=== PATIENT | male | born 1965 | race Caucasian/White ===

== ENCOUNTER 2020-08-03 08:34 | Outpatient (REF) | payer OTHER, SELFPAY ==
[2020-08-03 11:11] LABS: MANUAL DIFF FLAG NO
[2020-08-03 11:29] LABS: Basophils Absolute Auto 0.1 X10*3/uL (0.0-0.2); Basophils Percent Auto 1.1 % (0-2); Eosinophils Absolute Auto 0.1 X10*3/uL (0.0-0.4); Eosinophils Percent Auto 3.2 % (0-4); Hematocrit 49.7 % (42-52); Hemoglobin 16.4 g/dl (14.0-18.0); Imm Gran Abs Auto 0.01 X10*3/uL (0.00-0.03); Imm Gran Pct Auto 0.2 % (0.0-0.4); Lymphocytes Absolute Auto 1.4 X10*3/uL (1.2-4.9); Lymphocytes Percent Auto 31.4 % (20-40); Mean Corpuscular Hemoglobin 32.1 pg (27.0-33.0); Mean Corpuscular Volume 97.3 fL (80-98); Mean Platelet Volume 10.4 fL (9.4-12.4); Monocytes Absolute Auto 0.4 X10*3/uL (0.1-1.2); Monocytes Percent Auto 9.3 % (2-11); Neutrophils Absolute Auto 2.4 X10*3/uL (2.0-8.3); Neutrophils Percent Auto 54.8 % (45-73); Platelet Count 165 X10*3/uL (160-400); Red Blood Count 5.11 X10*6/uL (4.60-5.80); Red Cell Distribution Width 13.3 % (11.0-16.0); White Blood Count 4.4 X10*3/uL (4.8-10.8)
[2020-08-03 11:43] LABS: Alanine Aminotransferase 43 U/L (0-40); Albumin Level 4.3 g/dL (3.5-5.0); Alkaline Phosphatase 84 U/L (39-117); Anion Gap 13 (12-20); Aspartate Amino Transferase 28 U/L (5-37); Bilirubin Total 0.9 mg/dL (0.0-1.0); Blood Urea Nitrogen 18 mg/dL (9-16); Calcium 8.7 mg/dL (8.4-10.2); Carbon Dioxide 27 mmol/L (22-29); Chloride 101 mmol/L (96-108); Cholesterol 259 mg/dL; Estimated Glomerular Filt Rate 58; Glucose Fasting 96 mg/dL (60-99); HDL Cholesterol 50 mg/dL; LDL Cholesterol Calculated 178 mg/dl; Potassium 4.1 mmol/l (3.3-5.1); Sodium 137 mmol/L (135-145); Total Protein 7.4 g/dL (6.5-8.0); Triglycerides 159 mg/dL
== END 2020-08-03 08:35 | disposition home or self-care (01) ==
LOC: HO.HMGCLDS 08:34
PROVIDERS: PCP Internal Medicine; Visit Provider Internal Medicine
DX: E66.09 Other obesity due to excess calories (principal); Z68.35 Body mass index [BMI] 35.0-35.9, adult; Z00.01 Encounter for general adult medical examination with abnormal findings
CPT/HCPCS: 36415; 80053; 80061; 85025

== ENCOUNTER 2022-06-04 09:17 | Outpatient (REF) | payer OTHER, SELFPAY ==
--- NOTE | ~2022-06-04 | US_ITS ---
EXAMINATION: US VENOUS ULTRASOUND WITH DOPPLER LOWER EXTREMITY, RIGHT CLINICAL INFORMATION: Right leg pain and swelling. History of deep vein thrombosis. COMPARISON: None TECHNIQUE: Ultrasound of the deep veins is performed from the hip to the calf with compression sonography and color and pulse Doppler assessment. Spectral analysis with color-flow imaging is performed. FINDINGS: The common femoral vein is compressible and exhibits a normal phasic waveform; this suggests that the iliac veins are widely patent above. Within the proximal thigh, the visualized profunda femoris vein is normal. The examined greater saphenous vein and saphenofemoral junction are normal. There is nonocclusive, echogenic thrombus in the lumen of the femoral vein of the proximal thigh. This could represent relatively old, partially recanalized thrombus in this patient with history of DVT. However, in the proximal to mid thigh, the thrombus becomes more extensive and is segmentally occlusive. In the lower thigh, there is nonocclusive thrombus of the femoral vein. The popliteal vein has mild wall thickening and this is likely from chronic thrombus. The posterior tibial vein is unremarkable. The peroneal veins are not adequately visualized. No evidence of Jiang's cyst. US/US venous duplex LE RT IMPRESSION: The patient has deep vein thrombosis. Findings could represent a combination of chronic as well as [id number]-[id number] thrombosis involving the femoral vein. There is nonocclusive thrombosis of the popliteal vein. The nanotechnology engineering technologist notes that the preliminary results were discussed with the provider at 10:15 AM on 06/04/2022, and the patient will follow-up with the provider.
== END 2022-06-04 09:18 | disposition home or self-care (01) ==
LOC: HO.HMGCX 09:17
PROVIDERS: Visit Provider Internal Medicine
DX: Z86.718 Personal history of other venous thrombosis and embolism (principal)
CPT/HCPCS: 93971

== ENCOUNTER → 2022-06-07 12:57 | Outpatient (BNV) | payer OTHER, SELFPAY | PROVIDERS: Referring Provider Internal Medicine; Visit Provider Internal Medicine | DX: I82.511 Chronic embolism and thrombosis of right femoral vein (principal) | CPT/HCPCS: 99204; 99213; 99214 ==

== ENCOUNTER 2022-06-24 08:54 | Outpatient (REF) | payer OTHER, SELFPAY ==
[2022-06-24 11:37] LABS: Hematocrit 49.9 % (42.0-52.0); Hemoglobin 16.8 g/dl (14.0-18.0); Mean Corpuscular HGB Conc 33.7 g/dl (31.0-36.0); Mean Corpuscular Hemoglobin 31.3 pg (27.0-33.0); Mean Corpuscular Volume 92.9 fL (80.0-98.0); Mean Platelet Volume 10.7 fL (9.4-12.4); Platelet Count 166 X10*3/uL (160-400); Red Blood Count 5.37 X10*6/uL (4.60-5.80); Red Cell Distribution Width 13.3 % (11.0-16.0); White Blood Count 3.8 X10*3/uL (4.8-10.8)
[2022-06-24 11:52] LABS: Anion Gap 14 (12-20); Blood Urea Nitrogen 15 mg/dL (9-16); Carbon Dioxide 24 mmol/L (22-29); Chloride 104 mmol/L (96-108); Estimated Glomerular Filt Rate 59; Glucose Random 115 mg/dL (60-115); Potassium 3.9 mmol/L (3.3-5.1); Sodium 138 mmol/L (135-145)
[2022-06-25 09:03] LABS: Herpes Simplex Type 2 IgG <0.90 index; Lyme Abs Screen <0.90 index
== END 2022-06-24 08:55 | disposition home or self-care (01) ==
LOC: HO.HMGCLDS 08:54
PROVIDERS: PCP Internal Medicine; Visit Provider Internal Medicine
DX: G51.0 Bell's palsy (principal)
CPT/HCPCS: 36415; 80048; 85027; 86617; 86618; 86695; 86696

== ENCOUNTER 2022-09-18 17:26 | Outpatient (REF) | payer OTHER, SELFPAY | END 2022-09-18 17:27 | disposition home or self-care (01) | LOC: HO.LNP 17:26 | PROVIDERS: Visit Provider Internal Medicine | DX: B35.1 Tinea unguium (principal) | CPT/HCPCS: 87101; 87107; 87220 ==

== ENCOUNTER 2023-10-01 11:39 | Outpatient (AMB) | payer OTHER, SELFPAY ==
--- NOTE | 2023-10-01 11:45 | A.OFFPC_ITS ---
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 He says that he has appointment with Hematology in December meanwhile he is requesting refill which I have sent for him Patient also have onychomycosis on his toenails, he took terbinafine last year for 3 month the fingernails cleared up but since he did not come in for follow- up and did not do the labs after that we did not refill the terbinafine. Explained to patient that medication have side effect we have to monitor liver function while he is taking that. I want him to do the labs today and I will send in another 3 months of terbinafine 250 mg once a day and then patient need to come in for follow-up in 3 months He also have a history of L4-5 disc fusion in the past, currently going to chiropractor which is helping however still continued to have pain radiating to left leg he is requesting to be started on gabapentin He has taken it in the past and did well. Patient is aware of side effect, we discussed the side effect again, this is a controlled medication and will require a visit every 3 months for refill. Patient agrees. Labs to be done today follow-up in 3 months for physical exam BMI is elevated patient is trying to lose weight PFSH Medical History Bulging lumbar disc Surgical History H/O lumbosacral spine surgery Family History Mother Allergies Varicose vein of leg Father Heart attack Stroke Social History Household Members: Significant Other Housing: House Patient Tobacco Use Status: Former Tobacco user Tobacco use type: Cigarette e-Cigarette/Vaping Use: Never Used Substance Use Type: Marijuana service: Yes ([employer]) Current occupational status: employed Cognitive needs: No Hearing needs: No Vision needs: Yes Review of Systems Const Denies chills and Denies fever(s) ENT Denies epistaxis and Denies nasal discharge Card Denies chest pain Resp Denies chest congestion, Denies cough and Denies hemoptysis GI Denies diarrhea and Denies nausea Skin/Breast Denies rash Neuro Reports no additional complaints Psych Reports no additional complaints Endo Reports no additional complaints Physical exam (Primary Care) Vital Signs: Last Vital Signs Pulse 83 10/01/23 11:46 BP 122/82 10/01/23 11:46 Pulse Ox 96 10/01/23 11:46 Oxygen Delivery Method Room Air 10/01/23 11:46 BMI result Body Mass Index 37.2 Tobacco/Smoking Status: Tobacco use Status Tobacco use date assessed 09/18/22 10/01/23 11:48 Patient Tobacco Use Status Former Tobacco user 10/01/23 11:48 Tobacco use type Cigarette 10/01/23 11:48 e-Cigarette/Vaping Use Never Used 10/01/23 11:48 Const General: cooperative, comfortable and no acute distress Orientation/consciousness: patient oriented x3 HENMT Head: Yes normocephalic Eyes General: appearance normal, both eyes and all related structures Neck Neck: Yes supple Resp Effort & Inspection: normal respiratory effort, no cough and no stridor Cardio Rhythm: regular rhythm Heart sounds: S1 normal heart sound present and S2 normal heart sound present Skin General skin exam: turgor normal Neuro General: patient oriented x3, tone normal and moves all extremities Extrem Other: Big toenail discolored and thick Right lower extremity: no edema Left lower extremity: no edema Assessment and Plan Assessment & Plan (1) Fungal toenail infection: Code(s): B35.1 - Tinea unguium (2) History of DVT (deep vein thrombosis): Code(s): Z86.718 - Personal history of other venous thrombosis and embolism (3) Left lumbar radiculitis: Code(s): M54.16 - Radiculopathy, lumbar region (4) Obesity due to excess calories: Code(s): E66.09 - Other obesity due to excess calories Qualifiers: Body mass index: BMI 37.0-37.9 Obesity classification: adult class 2 (BMI 35 - 39.9) Serious obesity comorbidity presence: without serious comorbidity Qualified Code(s): E66.09 - Other obesity due to excess calories; Z68.37 - Body mass index [BMI] 37.0-37.9, adult (5) History of lumbar discectomy: Code(s): Z98.890 - Other specified postprocedural states (6) 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 He says that he has appointment with Hematology in December meanwhile he is requesting refill which I have sent for him Patient also have onychomycosis on his toenails, he took terbinafine last year for 3 month the fingernails cleared up but since he did not come in for follow- up and did not do the labs after that we did not refill the terbinafine. Explained to patient that medication have side effect we have to monitor liver function while he is taking that. I want him to do the labs today and I will send in another 3 months of terbinafine 250 mg once a day and then patient need to come in for follow-up in 3 months He also have a history of L4-5 disc fusion in the past, currently going to chiropractor which is helping however still continued to have pain radiating to left leg he is requesting to be started on gabapentin He has taken it in the past and did well. Patient is aware of side effect, we discussed the side effect again, this is a controlled medication and will r equire a visit every 3 months for refill. Patient agrees. Labs to be done today follow-up in 3 months for physical exam BMI is elevated patient is trying to lose weight Orders: Orders Complete Blood Count Auto Diff Today B35.1 - Tinea unguium Comprehensive Met. Panel Today B35.1 - Tinea unguium Medications: New gabapentin 300 mg PO BEDTIME 90 caps 0RF Refilled rivaroxaban must administer with evening meal 20 mg PO DAILY 90 tabs 0RF Coding Level of Care Code Est Pt Level 4 (97705) Diagnoses Fungal toenail infection B35.1 History of DVT (deep vein thrombosis) Z86.718 Left lumbar radiculitis M54.16 Class 2 obesity due to excess calories without serious comorbidity with body mass index (BMI) of 37.0 to 37.9 in adult E66.09; Z68.37 Body mass index: BMI 37.0-37.9 Obesity classification: adult class 2 (BMI 35 - 39.9) Serious obesity comorbidity presence: without serious comorbidity History of lumbar discectomy Z98.890 Hx of care home use of blood thinners Z92.29
[2023-10-01 11:46] VITALS: BP 122/82; PULSE 83; O2SAT 96; BMI 37.2
== END 2023-10-01 16:48 | disposition home or self-care (01) ==
PROVIDERS: PCP Internal Medicine; Visit Provider Internal Medicine
DX: B35.1 Tinea unguium (principal); Z86.718 Personal history of other venous thrombosis and embolism; M54.16 Radiculopathy, lumbar region; E66.09 Other obesity due to excess calories; Z68.37 Body mass index [BMI] 37.0-37.9, adult; Z98.890 Other specified postprocedural states; Z92.29 Personal history of other drug therapy
CPT/HCPCS: 99214

== ENCOUNTER 2023-10-01 12:08 | Outpatient (REF) | payer OTHER, SELFPAY ==
[2023-10-01 13:07] LABS: MANUAL DIFF FLAG NO
[2023-10-01 13:31] LABS: Basophils Absolute Auto 0.1 X10*3/uL (0.0-0.2); Eosinophils Absolute Auto 0.2 X10*3/uL (0.0-0.4); Eosinophils Percent Auto 3.1 % (0-4); Hematocrit 47.7 % (42.0-52.0); Hemoglobin 16.2 g/dl (14.0-18.0); Imm Gran Abs Auto 0.02 X10*3/uL (0.00-0.03); Imm Gran Pct Auto 0.3 % (0.0-0.4); Lymphocytes Absolute Auto 1.6 X10*3/uL (1.2-4.9); Lymphocytes Percent Auto 26.5 % (20-40); Mean Corpuscular Hemoglobin 31.6 pg (27.0-33.0); Mean Corpuscular Volume 93.2 fL (80.0-98.0); Mean Platelet Volume 10.6 fL (9.4-12.4); Monocytes Absolute Auto 0.7 X10*3/uL (0.1-1.2); Monocytes Percent Auto 11.8 % (2-11); Neutrophils Absolute Auto 3.4 x10*3/uL (2.0-8.3); Neutrophils Percent Auto 57.3 % (45-73); Platelet Count 179 X10*3/uL (160-400); Red Blood Count 5.12 X10*6/uL (4.60-5.80); Red Cell Distribution Width 13.2 % (11.0-16.0); White Blood Count 5.9 X10*3/uL (4.8-10.8)
[2023-10-01 13:54] LABS: Alanine Aminotransferase 36 U/L (0-40); Albumin Level 4.3 g/dL (3.5-5.0); Alkaline Phosphatase 84 U/L (39-117); Anion Gap 13 (12-20); Aspartate Amino Transferase 29 U/L (5-37); Bilirubin Total 0.6 mg/dL (0.0-1.0); Blood Urea Nitrogen 15 mg/dL (9-16); Calcium 9.5 mg/dL (8.4-10.2); Carbon Dioxide 24 mmol/L (22-29); Chloride 107 mmol/L (96-108); Estimated Glomerular Filt Rate 60; Glucose Random 71 mg/dL (60-115); Potassium 3.7 mmol/L (3.3-5.1); Sodium 140 mmol/L (135-145); Total Protein 7.6 g/dL (6.5-8.0)
== END 2023-10-01 12:09 | disposition home or self-care (01) ==
LOC: HO.HMGCLDS 12:08
PROVIDERS: PCP Internal Medicine; Visit Provider Internal Medicine
DX: B35.1 Tinea unguium (principal)
CPT/HCPCS: 36415; 80053; 85025

== ENCOUNTER 2023-11-12 09:56 | Outpatient (AMB) | payer OTHER, SELFPAY ==
--- NOTE | 2023-11-12 10:03 | A.OFFPC_ITS ---
Vital Signs 11/12/23 10:04 Height 6 ft 1 in Weight 283 lb 6 oz BMI 37.4 BP 130/88 Blood Pressure Location Lt brachial Position Sitting Pulse 84 Pulse Source Pulse Oximeter Pulse Oximetry (%) 97 Oxygen Delivery Method Room Air Intake Visit Reasons: F/U medications Allergies No Known Allergies Allergy (Verified 11/12/23 10:04) Medication List - Last Reconciled 11/12/23 by Cate Horton MD gabapentin 300 mg PO BEDTIME rivaroxaban 20 mg PO DAILY Tobacco use date assessed: 11/12/23 Dental Screening Dental Screen Date: 11/12/23 Did you have a dental visit in the last 12 months?: Yes Did you have a dental problem in the last 6 months where you did not have access to dental care?: No Was dental information given to patient?: Patient has dentist HPI F/U medications HPI Details Patient is a 58-year-old gentleman came in today for a follow-up appointment His lower back pain radiculitis is much better taking gabapentin 300 mg at night hand also going to chiropractor Patient is tolerating medication and would like to continue, refill sent He has chronic toenail fungal infection, he was prescribed terbinafine in the past that he took and then stopped. He did benefit from it but he did not finish the full course. He is requesting to restart the medication again, I have sent it for 3 months Patient has appointment end of December, he will repeat labs before the visit It will take about 6 months for his toenails to heal. Patient have a history of chronic DVT right leg and is on blood thinners for the rest of his life He has chronic swelling of his right ankle because of that. He is wearing compression stocking which is helping BMI is elevated need to lose weight. Follow-up end of December [facility] Medical History Bulging lumbar disc Surgical History H/O lumbosacral spine surgery Family History Mother Allergies Varicose vein of leg Father Heart attack Stroke Social History Household Members: Significant Other Housing: House Patient Tobacco Use Status: Former Tobacco user Tobacco use type: Cigarette e-Cigarette/Vaping Use: Never Used Substance Use Type: Marijuana service: Yes ([employer]) Current occupational status: employed Cognitive needs: No Hearing needs: No Vision needs: Yes Questionnaire AUDIT C Alcohol Use Questionnaire (AUDIT-C) 1. How often do you have a drink containing alcohol?: 2-3 times a week 2. How many drinks containing alcohol do you have on a typical day when you are drinking?: 1 or 2 3. How often do you have six or more drinks on one occasion?: Never Total Score: 3 Score Reviewed/Action Taken: Yes Review of Systems Const Denies chills and Denies fever(s) ENT Denies epistaxis and Denies nasal discharge Card Denies chest pain Resp Denies chest congestion, Denies cough and Denies hemoptysis GI Denies diarrhea and Denies nausea Skin/Breast Denies rash Neuro Reports no additional complaints Psych Reports no additional complaints Endo Reports no additional complaints Physical exam (Primary Care) Vital Signs: Last Vital Signs Pulse 84 11/12/23 10:04 BP 130/88 11/12/23 10:04 Pulse Ox 97 11/12/23 10:04 Oxygen Delivery Method Room Air 11/12/23 10:04 BMI result Body Mass Index 37.4 Tobacco/Smoking Status: Tobacco use Status Tobacco use date assessed 11/12/23 11/12/23 10:04 Patient Tobacco Use Status Former Tobacco user 11/12/23 10:04 Tobacco use type Cigarette 11/12/23 10:04 e-Cigarette/Vaping Use Never Used 11/12/23 10:04 Const General: cooperative, comfortable and no acute distress Orientation/consciousness: patient oriented x3 HENMT Head: Yes normocephalic Eyes General: appearance normal, both eyes and all related structures Neck Neck: Yes supple Resp Effort & Inspection: normal respiratory effort, no cough and no stridor Cardio Rhythm: regular rhythm Heart sounds: S1 normal heart sound present and S2 normal heart sound present Skin General skin exam: turgor normal Neuro General: patient oriented x3, tone normal and moves all extremities Assessment and Plan Assessment & Plan (1) Onychomycosis: Code(s): B35.1 - Tinea unguium (2) Decreased GFR: Code(s): R94.4 - Abnormal results of kidney function studies (3) Lipid disorder: Code(s): E78.9 - Disorder of lipoprotein metabolism, unspecified (4) Left lumbar radiculitis: Code(s): M54.16 - Radiculopathy, lumbar region (5) 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: Code(s): Z92.29 - Personal history of other drug therapy (6) History of DVT (deep vein thrombosis): Code(s): Z86.718 - Personal history of other venous thrombosis and embolism (7) Swelling of right lower extremity: Code(s): M79.89 - Other specified soft tissue disorders (8) Obesity due to excess calories: Code(s): E66.09 - Other obesity due to excess calories Qualifiers: Obesity classification: adult class 2 (BMI 35 - 39.9) Serious obesity comorbidity presence: without serious comorbidity Body mass index: BMI 37.0- 37.9 Qualified Code(s): E66.09 - Other obesity due to excess calories; Z68.37 - Body mass index [BMI] 37.0-37.9, adult Plan Patient is a 58-year-old gentleman came in today for a follow-up appointment His lower back pain radiculitis is much better taking gabapentin 300 mg at night hand also going to chiropractor Patient is tolerating medication and would like to continue, refill sent He has chronic toenail fungal infection, he was prescribed terbinafine in the past that he took and then stopped. He did benefit from it but he did not finish the full course. He is requesting to restart the medication again, I have sent it for 3 months Patient has appointment end of December, he will repeat labs before the visit It will take about 6 months for his toenails to heal. Patient have a history of chronic DVT right leg and is on blood thinners for the rest of his life He has chronic swelling of his right ankle because of that. He is wearing compression stocking which is helping BMI is elevated need to lose weight. Follow-up end of December Orders: Orders Comprehensive Met. 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
[2023-11-12 10:04] VITALS: BP 130/88; PULSE 84; O2SAT 97; BMI 37.4
== END 2023-11-12 11:26 | disposition home or self-care (01) ==
PROVIDERS: PCP Internal Medicine; Visit Provider Internal Medicine
DX: B35.1 Tinea unguium (principal); R94.4 Abnormal results of kidney function studies; E78.9 Disorder of lipoprotein metabolism, unspecified; M54.16 Radiculopathy, lumbar region; Z92.29 Personal history of other drug therapy; Z86.718 Personal history of other venous thrombosis and embolism; M79.89 Other specified soft tissue disorders; E66.09 Other obesity due to excess calories; Z68.37 Body mass index [BMI] 37.0-37.9, adult
CPT/HCPCS: 99214

== ENCOUNTER 2025-02-25 10:37 | Outpatient (REF) | payer OTHER, SELFPAY ==
--- NOTE | ~2025-02-25 | US_ITS ---
EXAMINATION: US TRIPLEX LOWER EXTREMITY, RIGHT CLINICAL INFORMATION: Follow-up examination for prior DVT diagnosed 06/04/2022. COMPARISON: 06/04/2022. TECHNIQUE: Color-flow triplex imaging with spectral analysis and compression Doppler were performed on the right lower extremity. FINDINGS: Chronic recanalized appearing thrombus seen within the proximal right femoral vein, through to the popliteal vein and involving the posterior tibial vein and profunda femoral vein, with foci of calcification indicating chronic thrombus. Occlusive thrombus evident in the mid femoral vein, unknown in chronicity but also likely chronic. The common femoral vein is patent. There is no Jiang's cyst. Incidentally noted reactive lymph node in the right groin. US/US venous duplex LE RT IMPRESSION: 1. Findings of probable chronic DVT/thrombus involving the proximal femoral vein, popliteal vein, and posterior tibial vein and profunda femoral vein. 2. Age-indeterminate occlusive thrombus in the mid femoral vein. Given findings elsewhere, this is also likely chronic. Electronically signed by: John Jiang MD 02/25/2025 11:33 AM EDT
== END 2025-02-25 10:38 | disposition home or self-care (01) ==
LOC: HO.HMGCX 10:37
PROVIDERS: PCP Internal Medicine; Visit Provider Internal Medicine
DX: Z86.718 Personal history of other venous thrombosis and embolism (principal)
CPT/HCPCS: 93971

== ENCOUNTER → 2025-02-25 10:39 | Outpatient (BNV) | payer OTHER, SELFPAY | PROVIDERS: PCP Internal Medicine; Visit Provider Radiology Diagnostic Radiology | DX: I82.411 Acute embolism and thrombosis of right femoral vein (principal) | CPT/HCPCS: 93971 ==

== ENCOUNTER 2025-07-22 08:14 | Outpatient (AMB) | payer OTHER, SELFPAY ==
--- NOTE | 2025-07-22 08:19 | AM.OFFWIN_ITS ---
Intake Vital Signs 07/22/25 08:20 Height 6 ft 1 in Intake Visit Reasons: Severe Back Pain Patient Tobacco Use Status: Former Tobacco user Allergies No Known Allergies Allergy (Verified 02/11/24 16:08) PFSH Medical History Bulging lumbar disc Surgical History H/O lumbosacral spine surgery Family History Mother Allergies Varicose vein of leg Father Heart attack Stroke Social History Household Members: Significant Other Housing: House Patient Tobacco Use Status: Former Tobacco user Tobacco use type: Cigarette e-Cigarette/Vaping Use: Never Used Substance Use Type: Marijuana service: Yes ([employer]) Current occupational status: employed Cognitive needs: No Hearing needs: No Vision needs: Yes Coding
[2025-07-22 08:20] VITALS: BP 120/80; PULSE 82; O2SAT 96; BMI 38.1
--- NOTE | 2025-07-22 08:21 | MHC.PC.OV ---
Vital Signs 07/22/25 08:20 Height 6 ft 1 in Weight 289 lb BMI 38.1 BP 120/80 Blood Pressure Location Rt brachial Position Sitting Pulse 82 Pulse Source Pulse Oximeter Pulse Oximetry (%) 96 Intake Visit Reasons: Severe Back Pain Allergies No Known Allergies Allergy (Verified 07/22/25 08:20) Medication List - Last Reconciled 07/22/25 by Cate Horton MD baclofen 20 mg PO BEDTIME methylprednisolone (Medrol (Gabino)) PO PER PKG DIR 6 days rivaroxaban 20 mg PO DAILY tramadol 50 mg PO BID PRN Tobacco use date assessed: 07/22/25 Dental Screening Dental Screen Date: 07/22/25 Did you have a dental visit in the last 12 months?: Yes Did you have a dental problem in the last 6 months where you did not have access to dental care?: No Was dental information given to patient?: Patient has dentist HPI Severe Back Pain HPI Details History of Present Illness The patient is a 60-year-old male presenting with lower back pain. Lower back pain: - The patient reports the onset of lower back pain since December of this year. - He describes the pain as 4 on a scale of 1 to 10. - He reports the pain is not very severe but is associated with a tingling sensation and weakness, particularly in the left leg. - The pain occasionally radiates down the left leg. - The pain worsens with sitting and bending. - The patient relates the onset of symptoms to an incident of lifting 60-pound timbers during that time frame. - Prior pain episodes were managed with acetaminophen and ibuprofen; however, he recently started experiencing reduced relief. - The patient has a history of back problems dating back to 2010, with prior physical therapy last year which initially improved symptoms. 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 - He does not engage in sports but maintains physical activity at home. Diagnostic Results: - Past lab tests from February of this year indicating good kidney function. Problem List - Chronic lower back pain Plan - Cease the use of ibuprofen for inflammation management. as he is on blood thinners - Prescribe prednisone for inflammation management. - Provide Tramadol to be taken twice daily with meals. - Arrange for an x-ray of the lumbar region. - Review the patient's past physical therapy documentation for a comprehensive assessment. - Schedule a follow-up appointment in 7 to 10 days to evaluate the x-ray results and monitor progress. - Consider muscle relaxers for nighttime use to address potential muscle involvement. Review of Systems - General: No fever no chills - Neurological: No headaches no dizziness - Ear nose throat: No sore throat no hearing difficulty no ear pain - Cardiovascular: No syncope, no chest pain, no palpitations - Gastrointestinal: No nausea vomiting or diarrhea - Endocrine: No polyuria polydipsia no heat intolerance - Genitourinary: No dysuria , no blood in urine Physical Exam General: No acute distress HEENT: No acute findings Neck: Supple Respiratory system: Able to talk in full sentences, no audible wheeze Gastrointestinal: No pain Extremities: no swelling Bacl : no pain with percussion over lumber spine MANAGER SYSTEMS: Alert awake oriented x3 motor intact, sensory intact grossly, straight leg neg both side Skin: Normal turgor PFSH Medical History Bulging lumbar disc Surgical History H/O lumbosacral spine surgery Family History Mother Allergies Varicose vein of leg Father Heart attack Stroke Social History Household Members: Significant Other Housing: House Patient Tobacco Use Status: Former Tobacco user Tobacco use type: Cigarette e-Cigarette/Vaping Use: Never Used Substance Use Type: Marijuana service: Yes ([employer]) Current occupational status: employed Cognitive needs: No Hearing needs: No Vision needs: Yes Questionnaire PHQ-9 Over the last 2 weeks, how often have you been bothered by any of the following problems? 1. Little interest or pleasure in doing things: not at all 2. Feeling down, depressed, or hopeless: not at all 3. Trouble falling or staying asleep, or sleeping too much: not at all 4. Feeling tired or having little energy: not at all 5. Poor appetite or overeating: not at all 6. Feeling bad about yourself - or that you are a failure or have let yourself or your family down: not at all 7. Trouble concentrating on things, such as reading the newspaper or watching television: not at all 8. Moving or speaking so slowly that other people could have noticed. Or the opposite - being so fidgety or restless that you have been moving around a lot more than usual: not at all 9. Thoughts that you would be better off or of hurting yourself in some way: not at all Total score: 0 Depression Screening Interpretation: Negative Depression Screening Done: Yes 26573 - PHQ-9 Billing: Yes Source: Developed by Drs. Kenny Painter, Melanie Pond, Quan Chiu and colleagues, with an educational derick from [employer]. AUDIT C Alcohol Use Questionnaire (AUDIT-C) 1. How often do you have a drink containing alcohol?: 2-4 times a month 2. How many drinks containing alcohol do you have on a typical day when you are drinking?: 5 or 6 3. How often do you have six or more drinks on one occasion?: Monthly Total Score: 6 Score Reviewed/Action Taken: Yes ADONIS-7 AMB Questionnaire ADONIS-7 Date ADONIS - 7 assessed: 07/22/25 Feeling nervous, anxious, or on edge: 0 = Not at all Not being able to stop or control worryin = Not at all Worrying too much about different things: 0 = Not at all Trouble relaxin = Not at all Being so restless that it is hard to sit still: 0 = Not at all Becoming easily annoyed or irritable: 0 = Not at all Feeling afraid as if something awful might happen: 0 = Not at all Total ADONIS-7 score (0-4 normal; 5-9 mild; 10-14 moderate; 15-21 severe): 0 Source: Developed by Drs. Kenny Painter, Melanie Pond, Quan Chiu and colleagues, with an educational derick from [employer]. ADONIS-7 Assessment Billing ADONIS-7 Assessment Tool: ADONIS-7 Assessment 81147 Physical exam (Primary Care) Vital Signs: Last Vital Signs Pulse 82 07/22/25 08:20 BP 120/80 07/22/25 08:20 Pulse Ox 96 07/22/25 08:20 BMI result Body Mass Index 38.1 Tobacco/Smoking Status: Tobacco use Status Tobacco use date assessed 07/22/25 07/22/25 08:29 Patient Tobacco Use Status Former Tobacco user 07/22/25 08:29 Tobacco use type Cigarette 07/22/25 08:29 e-Cigarette/Vaping Use Never Used 07/22/25 08:29 PHQ-9: PHQ-9 Score PHQ-9: Total score 0 07/22/25 08:43 Depression Screening Interpretation: Negative Coding Level of Care Code Est Pt Level 3 (41424) Diagnoses Left lumbar radiculitis M54.16 Additional Codes ADONIS-7 Assessment Billing - ADONIS-7 Assessment Tool: ADONIS-7 Assessment 62102 ([id number]) PHQ-9 - 67935 - PHQ-9 Billing: Yes ([id number]) Assessment & Plan Assessment & Plan (1) Left lumbar radiculitis: Code(s): M54.16 - Radiculopathy, lumbar region Category: Medical Plan History of Present Illness The patient is a 60-year-old male presenting with lower back pain. Lower back pain: - The patient reports the onset of lower back pain since December of this year. - He describes the pain as 4 on a scale of 1 to 10. - He reports the pain is not very severe but is associated with a tingling sensation and weakness, particularly in the left leg. - The pain occasionally radiates down the left leg. - The pain worsens with sitting and bending. - The patient relates the onset of symptoms to an incident of lifting 60-pound timbers during that time frame. - Prior pain episodes were managed with acetaminophen and ibuprofen; however, he recently started experiencing reduced relief. - The patient has a history of back problems dating back to 2010, with prior physical therapy last year which initially improved symptoms. 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 - He does not engage in sports but maintains physical activity at home. Diagnostic Results: - Past lab tests from February of this year indicating good kidney function. Problem List - Chronic lower back pain Plan - Cease the use of ibuprofen for inflammation management. as he is on blood thinners - Prescribe prednisone for inflammation management. - Provide Tramadol to be taken twice daily with meals. - Arrange for an x-ray of the lumbar region. - Review the patient's past physical therapy documentation for a comprehensive assessment. - Schedule a follow-up appointment in 7 to 10 days to evaluate the x-ray results and monitor progress. - Consider muscle relaxers for nighttime use to address potential muscle involvement. Orders: Orders XR lumbar spine 2-3V 07/22/25 M54.16 - Radiculopathy, lumbar region Medications: New baclofen 20 mg PO BEDTIME 14 tabs 0RF methylprednisolone (Medrol (Gabino)) PO PER PKG DIR 21 ea 0RF 6 days tramadol 50 mg PO BID PRN 20 tabs 0RF pain
== END 2025-07-22 08:43 | disposition home or self-care (01) ==
LOC: HO.HMCC 08:14
PROVIDERS: PCP Internal Medicine; Visit Provider Internal Medicine
DX: M54.16 Radiculopathy, lumbar region (principal)

== ENCOUNTER 2025-07-22 08:14 | Outpatient (REF) | payer OTHER, SELFPAY ==
--- NOTE | ~2025-07-22 | XR_ITS ---
EXAMINATION: XR LUMBOSACRAL SPINE CLINICAL INFORMATION: M54.16 - Radiculopathy, lumbar region COMPARISON: None available. TECHNIQUE: Three views of the lumbosacral spine. FINDINGS: Postoperative change from disc fusion at L5-S1. There is bony ankylosis at the L5-S1 disc space level. Disc spaces are otherwise normal. Bone alignment is normal. No fracture or dislocation. Mild degenerative spondylosis of the proximal lumbar spine. Facet arthritis of the mid and lower lumbar spine. Surgical clips in the left pelvis. XR/XR lumbar spine 2-3V IMPRESSION: Postsurgical change from disc fusion at L5-S1. Degenerative changes with mild degenerative spondylosis of the proximal lumbar spine and mid and lower lumbar spine facet arthritis. Electronically signed by: Lisa Swift MD 07/22/2025 09:03 AM EDT
== END 2025-07-22 08:15 | disposition home or self-care (01) ==
LOC: HO.HMGCX 08:14
PROVIDERS: PCP Internal Medicine; Visit Provider Internal Medicine
DX: M54.16 Radiculopathy, lumbar region (principal)
CPT/HCPCS: 72100; 96127

== ENCOUNTER → 2025-07-22 08:47 | Outpatient (BNV) | payer OTHER, SELFPAY | PROVIDERS: PCP Internal Medicine; Visit Provider Radiology Diagnostic Radiology | DX: M47.816 Spondylosis without myelopathy or radiculopathy, lumbar region (principal) | CPT/HCPCS: 72100 ==

== ENCOUNTER 2025-08-03 13:27 | Outpatient (REF) | payer OTHER, SELFPAY ==
[2025-08-03 16:04] LABS: MANUAL DIFF FLAG NO
[2025-08-03 16:20] LABS: Hematocrit 51.6 % (42.0-52.0); Hemoglobin 17.0 g/dl (14.0-18.0); Imm Gran Abs Auto 0.03 X10*3/uL (0.00-0.03); Imm Gran Pct Auto 0.4 % (0.0-0.4); Lymphocytes Absolute Auto 2.1 X10*3/uL (1.2-4.9); Mean Corpuscular HGB Conc 32.9 g/dl (31.0-36.0); Mean Corpuscular Hemoglobin 30.1 pg (27.0-33.0); Mean Corpuscular Volume 91.5 fL (80.0-98.0); NRBC Abs Auto 0.000 X10*3/uL (0.0-0.012); NRBC Pct Auto 0.0 /100WBC (0.0-0.2); Platelet Count 194 X10*3/uL (160-400); Red Blood Count 5.64 X10*6/uL (4.60-5.80); White Blood Count 8.3 X10*3/uL (4.8-10.8)
[2025-08-03 16:31] LABS: Alanine Aminotransferase 64 U/L (0-40); Albumin Level 4.5 g/dL (3.5-5.0); Alkaline Phosphatase 107 U/L (39-117); Anion Gap 11 (12-20); Aspartate Amino Transferase 40 U/L (5-37); Blood Urea Nitrogen 22 mg/dL (9-16); Calcium 9.2 mg/dL (8.4-10.2); Carbon Dioxide 25 mmol/L (22-29); Chloride 105 mmol/L (96-108); Estimated Glomerular Filt Rate 56; Potassium 4.1 mmol/L (3.3-5.1); Sodium 137 mmol/L (135-145); Total Protein 7.8 g/dL (6.5-8.0)
== END 2025-08-03 13:28 | disposition home or self-care (01) ==
LOC: HO.HMGCLDS 13:27
PROVIDERS: PCP Internal Medicine; Visit Provider Internal Medicine
DX: B35.1 Tinea unguium (principal); M79.605 Pain in left leg; M54.9 Dorsalgia, unspecified; G89.29 Other chronic pain; M54.16 Radiculopathy, lumbar region; R20.2 Paresthesia of skin; R25.2 Cramp and spasm; Z79.01 Long term (current) use of anticoagulants; Z86.718 Personal history of other venous thrombosis and embolism; Z98.890 Other specified postprocedural states
CPT/HCPCS: 36415; 80053; 85025; 96127

== ENCOUNTER 2025-08-03 13:27 | Outpatient (AMB) | payer OTHER, SELFPAY ==
--- NOTE | 2025-08-03 13:30 | MHC.PC.OV ---
Vital Signs 08/03/25 13:31 Height 6 ft 1 in Weight 286 lb BMI 37.7 BP 128/80 Blood Pressure Location Lt brachial Position Sitting Pulse 93 Pulse Source Pulse Oximeter Pulse Oximetry (%) 96 Intake Visit Reasons: 7 day follow up Allergies No Known Allergies Allergy (Verified 08/03/25 13:31) Medication List - Last Reconciled 08/03/25 by Cate Horton MD baclofen 20 mg PO BEDTIME rivaroxaban 20 mg PO DAILY tramadol 50 mg PO BID PRN Tobacco use date assessed: 07/22/25 Dental Screening Dental Screen Date: 07/22/25 HPI 7 day follow up HPI Details History The patient is a 60-year-old male presenting with chronic back pain and left leg tingling. Chronic Back Pain: - History of chronic back pain with improvement in sleeping and ambulation. - The patient reports residual nerve symptoms, including tingling in the back of the left leg. - Previously undergone two discectomies and anterior lumbar interbody fusion - X-rays have shown stable surgical findings and degeneration noted. - Tingling persists, off and on - Previous flare-up managed with a course of Medrol Dosepak resulting in improvement Muscle relaxer was given as well but patient did not take that however now that he is done with steroid he will start the muscle relaxer as needed Toenail Abnormalities: - Prior treatment with a tablet form antifungal, resulting in significant improvement. Left toe cleared up but right side was only half done - One toenail remains with residual abnormality, with current [id number] treatments deemed ineffective. Patient is requesting retreatment For that he will have baseline liver enzyme test done today and then repeat it again in 2 months Anticoagulation Management (Xarelto): - There was a lapse in anticoagulation therapy due to discontinuation by pharmacy. - The patient was previously advised indefinite therapy. 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 - Patient advised on Aleve (Naproxen) for pain management along with a back support belt for protective measures. - Re-prescription of antifungal medication is underway, requiring updated liver enzyme tests for monitoring. - Continuation of Xarelto is critical for anticoagulation; a 90-day supply will be ensured to avoid further lapses. - Patient provided with lifestyle advice, including the importance of medication adherence notwithstanding personal aversion to pharmacotherapy. Advised to come for follow-up at least twice a year Review of Systems General: No fever no chills neurological: No headaches no dizziness ear nose throat: No sore throat no hearing difficulty no ear pain cardiovascular: No syncope, no chest pain, no palpitations gastrointestinal: No nausea vomiting or diarrhea endocrine: No polyuria polydipsia no heat intolerance genitourinary: No dysuria skin: No new complaints Physical Exam general: No acute distress HEENT: No acute findings neck: Supple respiratory system: Able to talk in full sentences, no audible wheeze no stridor cardiovascular: S1-S2 RRR gastrointestinal: No pain extremities: No edema VETERINARY INSPECTOR: Alert awake oriented x3 motor intact skin: Normal turgor PFSH Medical History Bulging lumbar disc Surgical History H/O lumbosacral spine surgery Family History Mother Allergies Varicose vein of leg Father Heart attack Stroke Social History Household Members: Significant Other Housing: House Patient Tobacco Use Status: Former Tobacco user Tobacco use type: Cigarette e-Cigarette/Vaping Use: Never Used Substance Use Type: Marijuana service: Yes ([employer]) Current occupational status: employed Cognitive needs: No Hearing needs: No Vision needs: Yes Questionnaire PHQ-9 Over the last 2 weeks, how often have you been bothered by any of the following problems? 1. Little interest or pleasure in doing things: more than half the days 2. Feeling down, depressed, or hopeless: not at all 3. Trouble falling or staying asleep, or sleeping too much: not at all 4. Feeling tired or having little energy: several days 5. Poor appetite or overeating: several days 6. Feeling bad about yourself - or that you are a failure or have let yourself or your family down: not at all 7. Trouble concentrating on things, such as reading the newspaper or watching television: not at all 8. Moving or speaking so slowly that other people could have noticed. Or the opposite - being so fidgety or restless that you have been moving around a lot more than usual: not at all 9. Thoughts that you would be better off or of hurting yourself in some way: not at all Total score: 4 Depression Screening Interpretation: Negative Depression Screening Done: Yes 66485 - PHQ-9 Billing: Yes Source: Developed by Drs. Kenny Painter, Melanie Pond, Quan Chiu and colleagues, with an educational derick from [employer]. Thrive Questionnaire Date Thrive assessed: 08/03/25 I am a: Patient What is your living situation today?: I have a steady place to live Within the past 12 months, did the food you bought not last and you didn't have the money to get more?: Sometimes True Within the past 12 months, did you worry whether your food would run out before you got money to buy more?: Never true Do you have trouble paying for medicines?: No Do you have trouble getting transportation to medical appointments?: No Do you have trouble paying your heating and electricity bill?: No Do you have trouble taking care of your child, family member or friend?: No Do you have trouble with day-to-day activities such as bathing, preparing meals, shopping, managing finances, etc.?: No Are you currently unemployed and looking for a job?: No Are you interested in more education?: No THRIVE Score: 1 ADONIS-7 AMB Questionnaire ADONIS-7 Date ADONIS - 7 assessed: 07/22/25 Source: Developed by Drs. Kenny Painter, Melanie Pond, Quan Chiu and colleagues, with an educational derick from [employer]. Physical exam (Primary Care) Vital Signs: Last Vital Signs Pulse 93 08/03/25 13:31 BP 128/80 08/03/25 13:31 Pulse Ox 96 08/03/25 13:31 BMI result Body Mass Index 37.7 Tobacco/Smoking Status: Tobacco use Status Tobacco use date assessed 07/22/25 08/03/25 13:33 Patient Tobacco Use Status Former Tobacco user 08/03/25 13:33 Tobacco use type Cigarette 08/03/25 13:33 e-Cigarette/Vaping Use Never Used 08/03/25 13:33 PHQ-9: PHQ-9 Score PHQ-9: Total score 4 08/03/25 14:17 Depression Screening Interpretation: Negative Thrive Assessment: Date of Thrive Assessment Date Thrive assessed 08/03/25 08/03/25 13:33 Coding Level of Care Code Est Pt Level 4 (38119) Diagnoses Onychomycosis B35.1 Left lumbar radiculitis M54.16 History of DVT (deep vein thrombosis) Z86.718 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 Z92.29 Paresthesia of right lower extremity R20.2 Muscle cramping R25.2 History of lumbar surgery Z98.890 Additional Codes PHQ-9 - 44895 - PHQ-9 Billing: Yes ([id number]) Assessment & Plan Assessment & Plan (1) Onychomycosis: Code(s): B35.1 - Tinea unguium Category: Medical (2) Left lumbar radiculitis: Code(s): M54.16 - Radiculopathy, lumbar region Category: Medical (3) History of DVT (deep vein thrombosis): Code(s): Z86.718 - Personal history of other venous thrombosis and embolism Category: Medical (4) 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 - The patient reports residual nerve symptoms, including tingling in the back of the left leg. - Previously undergone two discectomies and anterior lumbar interbody fusion - X-rays have shown stable surgical findings and degeneration noted. - Tingling persists, off and on - Previous flare-up managed with a course of Medrol Dosepak resulting in improvement Muscle relaxer was given as well but patient did not take that however now that he is done with steroid he will start the muscle relaxer as needed Toenail Abnormalities: - Prior treatment with a tablet form antifungal, resulting in significant improvement. Left toe cleared up but right side was only half done - One toenail remains with residual abnormality, with current [id number] treatments deemed ineffective. Patient is requesting retreatment For that he will have baseline liver enzyme test done today and then repeat it again in 2 months Anticoagulation Management (Xarelto): - There was a lapse in anticoagulation therapy due to discontinuation by pharmacy. - The patient was previously advised indefinite therapy. 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 - Patient advised on Aleve (Naproxen) for pain management along with a back support belt for protective measures. - Re-prescription of antifungal medication is underway, requiring updated liver enzyme tests for monitoring. - Continuation of Xarelto is critical for anticoagulation; a 90-day supply will be ensured to avoid further lapses. - Patient provided with lifestyle advice, including the importance of medication adherence notwithstanding personal aversion to pharmacotherapy. Advised to come for follow-up at least twice a year Orders: Orders Complete Blood Count Auto Diff Today B35.1 - Tinea unguium Comprehensive Met. Panel Today B35.1 - Tinea unguium Basic Metabolic Panel 2 Months B35.1 - Tinea unguium Medications: Refilled rivaroxaban must administer with evening meal 20 mg PO DAILY 90 tabs 1RF terbinafine HCl 250 mg PO DAILY 90 tabs 0RF 90 days
[2025-08-03 13:31] VITALS: BP 128/80; PULSE 93; O2SAT 96; BMI 37.7
== END 2025-08-03 14:00 | disposition home or self-care (01) ==
LOC: HO.HMCC 13:27
PROVIDERS: PCP Internal Medicine; Visit Provider Internal Medicine
DX: B35.1 Tinea unguium (principal); M54.16 Radiculopathy, lumbar region; Z86.718 Personal history of other venous thrombosis and embolism; Z92.29 Personal history of other drug therapy; R20.2 Paresthesia of skin; R25.2 Cramp and spasm; Z98.890 Other specified postprocedural states